=== PATIENT | female | born 1995 | race Caucasian/White ===

== ENCOUNTER 2016-08-28 03:26 | Emergency (ER) | payer MEDICAID | END 2016-08-28 04:20 | disposition home or self-care (01) | LOC: D.ER 03:26 | DX: M25.512 Pain in left shoulder (principal); J45.909 Unspecified asthma, uncomplicated; F17.200 Nicotine dependence, unspecified, uncomplicated ==

== ENCOUNTER 2016-09-16 09:24 | Emergency (ER) | payer MEDICAID | END 2016-09-16 10:22 | disposition left against medical advice (07) | LOC: D.ER 09:24 | DX: R60.0 Localized edema (principal) ==

== ENCOUNTER 2016-09-22 17:30 | Emergency (ER) | payer MEDICAID | END 2016-09-22 21:57 | disposition home or self-care (01) | LOC: D.ER 17:30 | DX: L02.01 Cutaneous abscess of face (principal); J45.909 Unspecified asthma, uncomplicated ==

== ENCOUNTER 2016-10-16 01:14 | Emergency (ER) | payer MEDICAID ==
[2016-10-16 02:44] LABS: BASOPHILS 0.2 % (0.0-2.0); EOSINOPHILS 1.2 % (0-7); HEMATOCRIT 33.6 % (36.0-48.0); HEMOGLOBIN 11.1 g/dL (12-16); IMMATURE GRANULOCYTES 0.3 % (0-5); LYMPHOCYTES 33.6 % (15-50); MCH 29.7 pg (26.0-34.0); MCV 89.8 fL (80.0-100.0); MEAN PLATELET VOLUME 9.7 fL (7.4-10.4); MONOCYTES 7.9 % (2-11); NEUTROPHILS 56.8 % (40-80); RBC 3.74 10x6/uL (4.00-5.40); RDW 14.3 % (11.5-14.5); WBC 9.6 10x3/uL (4.8-10.8)
[2016-10-16 02:47] LABS: APPEARANCE CLEAR (CLEAR); BILIRUBIN NEGATIVE (NEGATIVE); COLOR YELLOW (YELLOW); GLUCOSE NEGATIVE (NEGATIVE); KETONE SMALL mg/dL (NEGATIVE); LEUKOCYTE ESTERASE NEGATIVE (NEGATIVE); NITRITE NEGATIVE (NEGATIVE); PLATELET COUNT 286 10x3/uL (130-400); PROTEIN NEGATIVE (NEGATIVE); SPECIFIC GRAVITY 1.015 (1.005-1.020); UROBILINOGEN NORMAL (NORMAL)
[2016-10-16 02:52] LABS: HCG URINE NEGATIVE (NEGATIVE)
[2016-10-16 02:54] LABS: CALC OSMOLALITY 276 mosm/kg (275-300); CALCIUM 8.9 mg/dL (8.5-10.1); CARBON DIOXIDE 27.1 mmol/L (21.0-32.0); CHLORIDE - SERUM 104 mmol/L (98-107); CREATININE - SERUM 0.6 mg/dL (0.6-1.3); GLUCOSE 94 mg/dL (74-106); POTASSIUM - SERUM 3.9 mmol/L (3.5-5.1); SODIUM 139 mmol/L (136-145); UREA NITROGEN 11 mg/dL (7-18); eGFR NON AFRICAN AMERICAN > 90 mL/min (90-120)
== END 2016-10-16 05:20 | disposition home or self-care (01) ==
LOC: D.ER 01:14
PROVIDERS: Family Medicine
DX: R10.32 Left lower quadrant pain (principal); J45.909 Unspecified asthma, uncomplicated